=== PATIENT | female | born 1950 | race African-American/Black ===

== ENCOUNTER 2023-11-23 12:11 | Emergency (ER) | payer OTHER ==
[~2023-11-23] VITALS: Ht 175.3 cm; Wt 77.0 kg
[2023-11-23 12:15] VITALS: O2SAT 98
[2023-11-23 12:45] LABS: BASOPHILS % 0.7 % (0.0-2.0); EOSINOPHILS % 2.3 % (0.0-5.0); HEMATOCRIT. 36.3 % (36.0-48.0); HEMOGLOBIN. 11.9 g/dL (12.0-16.0); LYMPHOCYTES % 26.8 % (20.0-50.0); MEAN CORPUSCULAR HEMOGLOBIN 32.5 pg (28.0-32.0); MEAN CORPUSCULAR HGB CONC 32.9 g/dL (31.0-37.0); MEAN CORPUSCULAR VOLUME 98.6 fL (81.0-99.0); MEAN PLATELET VOLUME 7.3 fl (7.4-10.4); MONOCYTES % 4.8 % (2.0-8.0); NEUTROPHILS % 65.4 % (40.0-76.0); PLATELET 433 x1000/uL (130-400); RED BLOOD CELL COUNT 3.68 mill/uL (4.2-5.4); RED CELL DISTRIBUTION WIDTH 13.9 % (11.6-14.6); WHITE BLOOD COUNT 7.5 x1000/uL (4.5-11.0)
[2023-11-23 12:53] LABS: CHLORIDE 106 mEq/L (98-107); POTASSIUM 3.3 mEq/L (3.5-5.1); SODIUM 140 mEq/L (136-145)
[2023-11-23 12:54] LABS: CALCIUM 10.1 mg/dL (8.7-10.4); CARBON DIOXIDE 23 mEq/L (21-32)
[2023-11-23 12:59] LABS: CREATININE 0.8 mg/dL (0.6-1.0); GLUCOSE 149 mg/dL (70-105); UREA NITROGEN BLOOD 15 mg/dL (9-23)
[2023-11-23 13:00] LABS: TROPONIN I HIGH SENSITIVITY 11 ng/L (3.0-34)
[2023-11-23] MEDS: HYDRALAZINE 20MG/ML VIAL IV ONE (13:02)
[2023-11-23] MEDS: MORPHINE SULFATE 4 MG/ML INJ (FOR IV/IM USE) IV ONE (13:17)
[2023-11-23] MEDS: ONDANSETRON HCL 4MG/2ML INJ IV ONE (13:17)
[2023-11-23] MEDS: NITROGLYCERIN 0.4MG TABLET SL SL ONE (13:59)
[2023-11-23] MEDS: NITROGLYCERIN 0.4MG/HR PATCH TOP ONE (14:14)
[2023-11-23] MEDS ORDERED: CLONIDINE 0.2MG TABLET PO ONE (15:15)
[2023-11-23] MEDS: CLONIDINE 0.1MG TABLET PO NR (15:23)
[2023-11-23 15:46] LABS: TROPONIN I HIGH SENSITIVITY 27 ng/L (3.0-34)
[2023-11-23] MEDS: LABETALOL 5MG/ML 4ML INJ IV ONE (16:22)
[2023-11-23 16:40] LABS: CLARITY URINE CLEAR (CLEAR); COLOR URINE YELLOW (YELLOW); GLUCOSE URINE NEGATIVE (NEGATIVE); KETONES URINE TRACE (NEGATIVE); LEUKOCYTE ESTERASE URINE NEGATIVE (NEGATIVE); NITRITE URINE NEGATIVE (NEGATIVE); OCCULT BLOOD URINE NEGATIVE (NEGATIVE); PH URINE 8.5 (4.5-8.0); PROTEIN URINE TRACE (NEGATIVE); SPECIFIC GRAVITY URINE 1.012 (1.005-1.030); UROBILINOGEN URINE 0.2 E.U./dL (0.2-1.0)
[2023-11-23 16:55] LABS: BACTERIA URINE TRACE; RBC URINE 0-2 /hpf (0-2); SQUAMOUS EPITHELIAL CELL URINE FEW /lpf (RARE/1+); WBC URINE 0-2 /hpf (0-2)
[2023-11-23 17:48] LABS: IRON 61 ug/dL (50-170)
[2023-11-23 17:49] LABS: TRIGLYCERIDE 53 mg/dL (0-150)
[2023-11-23 17:50] LABS: LDL CHOLESTEROL 126 mg/dL (5-100)
[2023-11-23 17:51] LABS: CHOLESTEROL 231 mg/dL (<200); HDL CHOLESTEROL 92 mg/dL (>65); TOTAL IRON BINDING CAPACITY 148 ug/dl (250-425)
[2023-11-23 17:54] LABS: FOLIC ACID (FOLATE) SERUM 12.38 ng/mL (>5.38); VITAMIN B12 SERUM 607 pg/mL (211-911)
[2023-11-23 17:55] LABS: T4 FREE 1.14 ng/dL (0.89-1.76); THYROID STIMULATING HORMONE 0.63 uIU/mL (0.55-4.78)
[2023-11-23 18:40] VITALS: BP 188/87; PULSE 91; RESP 19; TEMP 98.1
== END 2023-11-23 19:25 | disposition short-term general hospital (02) ==
LOC: ER 12:11 → CANBEDREQ 17:16 → ER 19:25
DX: I16.9 Hypertensive crisis, unspecified (principal); R11.2 Nausea with vomiting, unspecified; I10 Essential (primary) hypertension
CPT/HCPCS: 99285; 74176; 96374; 96375; 71045; 80061; 80048; 81003; 82607; 82746; 83036; 83880; 84439; 83540; 83550; 83690; 84443; 85025; 84484; 93005; 36415; J0360; J3490; J2405; J2270